=== PATIENT | female | born 1975 | race Caucasian/White ===

== ENCOUNTER → 2023-04-29 23:39 | Outpatient (CLI) | payer BC, SELFPAY ==
[2023-04-29 19:19] LABS: Basophils % 0.8 % (0.1-2.0); Eosinophils # 0.2 K/mm3 (0.0-0.4); Eosinophils % 4.1 % (0.1-12.0); Hematocrit 41.5 % (37.0-47.0); Lymphocytes # 2.4 K/mm3 (0.7-4.5); Lymphocytes % 44.9 % (10-50); Mean Corpuscular HGB Conc 31.3 g/dL (31.8-35.4); Mean Corpuscular Hemoglobin 28.1 pg (27.0-31.2); Mean Platelet Volume 9.9 fl (7.4-10.4); Monocytes # 0.4 K/mm3 (0.1-1.0); Monocytes % 7.2 % (1.7-9.3); Neutrophils # 2.3 K/mm3 (1.8-7.8); Platelet Count 226 K/mm3 (142-424); Red Blood Count 4.61 M/mm3 (4.20-5.40); Red Cell Distribution Width 15.2 % (11.5-17.5); White Blood Count 5.2 K/mm3 (4.8-10.8)
[2023-04-29 19:49] LABS: Alanine Aminotransferase 14 U/L (12-78); Albumin Level 3.7 g/dl (3.5-5.0); Albumin/Globulin Ratio 1.4 (1.1-1.8); Alkaline Phosphatase 56 U/L (38-126); Anion Gap 12.9 mEq/L (5-15); Aspartate Amino Transferase 25 U/L (14-36); Bilirubin,Total 0.2 mg/dl (0.2-1.3); Blood Urea Nitrogen 12 mg/dl (7-17); Calcium 8.6 mg/dl (8.4-10.2); Carbon Dioxide 28 mmol/L (22.0-30.0); Chloride 101 mmol/L (98-107); Chol/HDL Ratio 2.4 (1-3.5); Cholesterol 142 mg/dl (140-200); Estimated Glomerular Filt Rate 108 ml/min (>60); GFR (African American) 130 ML/MIN (>60); Globulin 2.6 g/dL (1.3-3.2); Glucose 82 mg/dl (74-100); HDL Cholesterol 59 mg/dl (40-60); Potassium 3.9 mmoL/L (3.5-5.1); Sodium 138 mmol/L (136-145); Total Protein,Serum 6.3 g/dl (6.3-8.2); Triglycerides 70 mg/dl (30-150); VLDL Cholesterol 14 mg/dL (0-40)
[2023-04-29 19:59] LABS: Direct LDL Cholesterol 61.92 mg/dL (100-129)
[2023-04-29 20:05] LABS: Free T4 (Free Thyroxine) 1.89 ng/dl (0.78-2.19)
[2023-04-29 20:07] LABS: 25-OH Vitamin D, Total 32.8 ng/mL (30-100)
[2023-04-29 20:19] LABS: Thyroid Stimulating Hormone 0.69 uIU/mL (0.465-4.68)
== END ==
PROVIDERS: PCP Emergency Medicine; Visit Provider Emergency Medicine
DX: E55.9 Vitamin D deficiency, unspecified (principal); E66.9 Obesity, unspecified; Z68.33 Body mass index [BMI] 33.0-33.9, adult; Z79.899 Other long term (current) drug therapy
CPT/HCPCS: 80053; 80061; 82306; 84439; 84443; 85025

== ENCOUNTER → 2023-10-24 09:13 | Outpatient (CLI) | payer BC, SELFPAY ==
[2023-10-24 21:00] LABS: Phencyclidine Screen,Urine Negative ng/ml (<25)
[2023-10-24 21:04] LABS: Amphetamine/Metha Screen,Urine Negative ng/ml (<1000)
[2023-10-24 21:05] LABS: Barbiturates Screen,Urine Negative ng/ml (<200)
[2023-10-24 21:06] LABS: Benzodiazepines Screen,Urine Negative ng/ml (<200)
[2023-10-24 21:09] LABS: Cocaine Screen,Urine Negative ng/ml (<300); Methadone Screen,Urine Negative ng/ml (<300)
[2023-10-24 21:10] LABS: Opiate Screen,Urine Negative ng/ml (<300)
[2023-10-24 21:14] LABS: Cannabinoid Screen,Urine Negative ng/ml (<50)
== END ==
PROVIDERS: PCP Family Medicine; Visit Provider Family Medicine
DX: Z79.899 Other long term (current) drug therapy (principal)
CPT/HCPCS: 80305

== ENCOUNTER 2023-12-04 11:50 | Outpatient (CLI) | payer BC, SELFPAY ==
[2023-12-04 12:08] LABS: Basophils # 0.1 K/mm3 (0-0.2); Basophils % 0.6 % (0.1-2.0); Eosinophils # 0.2 K/mm3 (0.0-0.4); Eosinophils % 2.4 % (0.1-12.0); Hematocrit 42.9 % (37.0-47.0); Hemoglobin 14.3 g/dL (12.2-16.2); Lymphocytes # 2.9 K/mm3 (0.7-4.5); Lymphocytes % 35.5 % (10-50); Mean Corpuscular HGB Conc 33.4 g/dL (31.8-35.4); Mean Corpuscular Hemoglobin 32.3 pg (27.0-31.2); Mean Corpuscular Volume 96.8 fl (81-99); Monocytes # 0.5 K/mm3 (0.1-1.0); Monocytes % 6.7 % (1.7-9.3); Neutrophils # 4.5 K/mm3 (1.8-7.8); Neutrophils % 54.8 % (37.0-80.0); Platelet Count 271 K/mm3 (142-424); Red Blood Count 4.43 M/mm3 (4.20-5.40); Red Cell Distribution Width 14.9 % (11.5-17.5); White Blood Count 8.1 K/mm3 (4.8-10.8)
[2023-12-04 12:13] LABS: Alanine Aminotransferase 13 U/L (12-78); Albumin Level 3.4 g/dl (3.5-5.0); Albumin/Globulin Ratio 1.3 (1.1-1.8); Alkaline Phosphatase 64 U/L (38-126); Anion Gap 9.3 mEq/L (5-15); Aspartate Amino Transferase 22 U/L (14-36); Blood Urea Nitrogen 11 mg/dl (7-17); Carbon Dioxide 27 mmol/L (22.0-30.0); Chloride 104 mmol/L (98-107); Chol/HDL Ratio 4.6 (1-3.5); Cholesterol 231 mg/dl (140-200); Estimated Glomerular Filt Rate 107 ml/min (>60); GFR (African American) 130 ML/MIN (>60); Globulin 2.7 g/dL (1.3-3.2); Glucose 95 mg/dl (74-100); HDL Cholesterol 50 mg/dl (40-60); Potassium 4.3 mmoL/L (3.5-5.1); Sodium 136 mmol/L (136-145); Total Protein,Serum 6.1 g/dl (6.3-8.2); Triglycerides 109 mg/dl (30-150); VLDL Cholesterol 22 mg/dL (0-40)
[2023-12-04 12:18] LABS: Bilirubin,Total 0.1 mg/dl (0.2-1.3)
[2023-12-04 12:24] LABS: Direct LDL Cholesterol 139.47 mg/dL (100-129)
[2023-12-04 12:29] LABS: 25-OH Vitamin D, Total 18.5 ng/mL (30-100)
== END 2023-12-04 23:59 ==
LOC: LAB.DROPOF 11:51
PROVIDERS: PCP Internal Medicine; Visit Provider Internal Medicine
DX: E03.9 Hypothyroidism, unspecified (principal); R53.83 Other fatigue; E55.9 Vitamin D deficiency, unspecified
CPT/HCPCS: 80053; 80061; 82306; 84443; 85025

== ENCOUNTER 2024-01-02 22:36 | Outpatient (CLI) | payer BC, SELFPAY ==
[2024-01-02 20:23] LABS: Free Thyroxine Index 3.7 ug/dL (5.93-13.13); T4 (Thyroxine) 12.3 ug/dl (5.53-11.0); Triiodothryronine (T3) Uptake 30 % (23.5-40.5)
[2024-01-02 20:24] LABS: 25-OH Vitamin D, Total 45.4 ng/mL (30-100)
[2024-01-02 20:36] LABS: Thyroid Stimulating Hormone 8.65 uIU/mL (0.465-4.68)
[2024-01-02 20:52] LABS: Vitamin B12 274 pg/mL (239-931)
== END 2024-01-02 23:59 ==
LOC: LAB.DROPOF 22:36
PROVIDERS: PCP Family Medicine; Visit Provider Family Medicine
DX: E03.8 Other specified hypothyroidism (principal); E66.9 Obesity, unspecified; Z68.32 Body mass index [BMI] 32.0-32.9, adult; Z79.899 Other long term (current) drug therapy
CPT/HCPCS: 82306; 82607; 84436; 84443; 84479